=== PATIENT | male | born 1970 | race Caucasian/White ===

== ENCOUNTER → 2016-12-17 | Outpatient (CLI) | payer OTHER ==
--- NOTE | ~2016-12-17 | CR170 ---
[facility] A Service of [facility] & [facility] RADIOLOGY TEXT RESULTS PATIENT: DORY ALLEN LOCATION: [facility] : 70 UNIT #: [id number] AGE: [address]: Mariela Rivera MD SEX: M ORDER DR: [id number] [facility] [address] [place], [place] [address] [id number] O MR#: [id number] Acc #: [id number] NAME: DORY ALLEN : 1970 SEX: M STUDY DATE/TIME: 12/17/2016 9:15 UNIT: [facility] ROOM: STUDY DESCRIPTION: CR Knee 2 Views Rt Attending Physician: Mariela Rivera M.D. Referring Physician: Mariela Rivera M.D. Ordering Physician: Mariela Rivera M.D. Primary Care Physician: Mariela Rivera M.D. MEDICAL IMAGING REPORT This report is preliminary unless electronic signature is present EXAM Right knee 12/17/2016 HISTORY 46-year-old male with right knee pain for 6 months. No specific injury. COMPARISON STUDIES None. FINDINGS 2 views of the right knee demonstrate no acute fracture or dislocation. No significant joint effusion. Mild degenerative change of patellofemoral joint. Medial and lateral compartment joint spaces maintained. Soft tissues are unremarkable. IMPRESSION No acute fracture or dislocation. Mild patellofemoral arthrosis. Dictated by... Yahir Morrison M.D. THIS IS AN ELECTRONICALLY VERIFIED REPORT Yahir Morrison M.D. at 12/18/2016 8:33 AM JQUIN/pcl TD: 12/17/2016 23:35 JOB #: [id number] MEDICAL IMAGING REPORT Page 1 of 1 COPY
--- NOTE | ~2016-12-17 | CR230 ---
[facility] A Service of [facility] & [facility] RADIOLOGY TEXT RESULTS PATIENT: DORY ALLEN LOCATION: [facility] : 70 UNIT #: [id number] AGE: [address]: Mariela Rivera MD SEX: M ORDER DR: [id number] [facility] [address] [place], [place] [address] [id number] O MR#: [id number] Acc #: [id number] NAME: DORY ALLEN : 1970 SEX: M STUDY DATE/TIME: 12/17/2016 9:16 UNIT: [facility] ROOM: STUDY DESCRIPTION: CR Shoulder Min 2 View Rt Attending Physician: Mariela Rivera M.D. Referring Physician: Mariela Rivera M.D. Ordering Physician: Mariela Rivera M.D. Primary Care Physician: Mariela Rivera M.D. MEDICAL IMAGING REPORT This report is preliminary unless electronic signature is present EXAM Right shoulder 12/17/2016 HISTORY 46-year-old male patient with right shoulder pain, 3 months duration. No known injury. FINDINGS 3 views of the right shoulder demonstrate a normal glenohumeral joint. Acromioclavicular joint is preserved. There appears to be some narrowing of the subacromial space. This is occasionally associated with impingement syndrome. Bone mineralization appears normal throughout. Cortex is intact and soft tissues are normal. IMPRESSION Essentially normal right shoulder. Suggested mild narrowing of the subacromial space. Dictated by... Yann Guevara M.D. THIS IS AN ELECTRONICALLY VERIFIED REPORT Yann Guevara M.D. at 12/18/2016 8:12 AM JALIL/jesus TD: 12/17/2016 20:27 JOB #: [id number] MEDICAL IMAGING REPORT Page 1 of 1 COPY
== END | disposition home or self-care (01) ==
LOC: CRAD 08:49
DX: M25.561 Pain in right knee (principal); M25.511 Pain in right shoulder; M17.11 Unilateral primary osteoarthritis, right knee
CPT/HCPCS: 73030; 73560

== ENCOUNTER → 2017-02-18 | Outpatient (CLI) | payer OTHER ==
--- NOTE | ~2017-02-18 | MR165 ---
[facility] A Service of [facility] & [facility] RADIOLOGY TEXT RESULTS PATIENT: DORY ALLEN [facility] : 70 UNIT #: [id number] AGE: [address]: Emilie Dennis MD SEX: M ORDER DR: [id number] [facility] [address] [place], [place] [address] [id number] O MR#: [id number] Acc #: [id number] NAME: DORY ALLEN : 1970 SEX: M STUDY DATE/TIME: 02/18/2017 18:00 UNIT: [facility] ROOM: STUDY DESCRIPTION: MR Shoulder Wo Contrast Rt Attending Physician: Emilie Dennis M.D. Referring Physician: Emilie Dennis M.D. Ordering Physician: Emilie Dennis M.D. Primary Care Physician: Mariela Rivera M.D. MRI CENTER REPORT This report is preliminary unless electronic signature is present. EXAM MRI of the right shoulder without contrast. HISTORY 46-year-old male lifting furniture 3 months ago reaggravated lifting steel beams at work. Right shoulder pain. Clinical concern for tendinitis versus tear. COMPARISON Right shoulder films, 12/17/2016 FINDINGS Multiplanar, multiecho imaging was performed of the right shoulder utilizing a high-field magnet dedicated protocol. Mild AC joint arthropathy with periarticular edema suggesting some active inflammation. Inferiorly-directed osteophyte and capsular hypertrophy does produce some mass effect on the rotator cuff. Marrow signal within the proximal humerus unremarkable except for a small amount of enthesopathic cystic changes at the cuff insertion. Gilr-[id number]-[id number] diffuse supraspinatus tendinopathy. Focal defect in the articular surface critical zone of the supraspinatus tendon measures about 6 mm and suggests a small partial-thickness tear. This is estimated less than 50% of thickness of the tendon. The infraspinatus teres minor tendons appear intact. The subscapularis tendon appears intact. There is a moderate amount of fluid and bursal thickening within the subcoracoid bursa supporting active bursitis. Superior labrum biceps anchor and long tendon of the biceps appears intact. Anterior and posterior labrum unremarkable. Deltoid and extraarticular soft tissues appear normal. IMPRESSION 1. Moderate amount of subcoracoid fluid and bursal thickening suggesting active bursitis and this may be a significant contributing factor to STS. [facility] A Service of [facility] & [facility] RADIOLOGY TEXT RESULTS PATIENT: DORY ALLEN LOCATION: [facility] : 70 UNIT #: [id number] AGE: [address]: Emilie Dennis MD SEX: M ORDER DR: the patient's shoulder pain. There is also inflammation involving the anterior subacromial-subdeltoid bursa and in the region of the rotator interval. 2. Supraspinatus tendinopathy with a 6 mm partial-thickness articular-sided tear critical zone supraspinatus tendon. 3. AC joint arthropathy with some periarticular edema and mild mass effect on the rotator cuff. Dictated by... Gabino Quevedo M.D. THIS IS AN ELECTRONICALLY VERIFIED REPORT Gabino Quevedo M.D. at 02/23/2017 7:18 AM Renata TD: 02/19/2017 23:54 JOB #: [id number] MRI CENTER REPORT Page 1 of 1 COPY
== END | disposition home or self-care (01) ==
LOC: CMRI 17:26
DX: M75.81 Other shoulder lesions, right shoulder (principal); M75.51 Bursitis of right shoulder; M19.011 Primary osteoarthritis, right shoulder
CPT/HCPCS: 73221